=== PATIENT | male | born 1975 | race Caucasian/White ===

== ENCOUNTER → 2017-01-08 | Outpatient (CLI) | payer BC | LOC: COL.RAD 08:13 | DX: S73.192A Other sprain of left hip, initial encounter (principal) | CPT/HCPCS: A9585; J3301; Q9967 ==

== ENCOUNTER → 2017-08-12 | Outpatient (CLI) | payer BC | LOC: COL.RAD 08:44 | DX: S73.102A Unspecified sprain of left hip, initial encounter (principal) | CPT/HCPCS: A9585; J3301; Q9967 ==

== ENCOUNTER → 2020-08-31 | Outpatient (CLI) | payer SELFPAY | LOC: ZLAB.WCH 14:29 | DX: Z01.89 Encounter for other specified special examinations (principal) ==